=== PATIENT | female | born 1965 | race Two or more races ===

== ENCOUNTER 2018-08-13 23:13 | Emergency (ER) | payer OTHER ==
[~2018-08-13] VITALS: Ht 162.6 cm; Wt 72.6 kg
[~2018-08-13 23:13] MED LIST: ENALAPRIL MALE2.5 MG PO; GLIMEPIRIDE4 MG PO; PROTONIX20 MG; SINGULAIR10 MG PO; ZESTRIL5 MG
== END 2018-08-14 03:52 | disposition left against medical advice (07) ==
LOC: ER 23:13
DX: J06.9 Acute upper respiratory infection, unspecified (principal); E11.65 Type 2 diabetes mellitus with hyperglycemia; R10.12 Left upper quadrant pain

== ENCOUNTER 2023-05-12 17:50 | Emergency (ER) | payer OTHER ==
[~2023-05-12] VITALS: Ht 160 cm; Wt 78.0 kg
[2023-05-12] MEDS ORDERED: METFORMIN HCL500 M4 PO (17:59)
[2023-05-12] MEDS ORDERED: ZESTRIL2.5 MG (18:00)
[2023-05-12] MEDS ORDERED: hydrOXYzine PAMOATE 50 MG CAPSULE PO STA (19:51)
== END 2023-05-12 21:26 | disposition left against medical advice (07) ==
LOC: ER 17:51
DX: F41.8 Other specified anxiety disorders (principal)

== ENCOUNTER 2024-06-28 05:46 | Emergency (ER) | payer OTHER ==
[~2024-06-28] VITALS: Ht 160 cm; Wt 86.2 kg
[~2024-06-28 05:46] MED LIST changes: +METFORMIN HCL500 M4 PO; +ZESTRIL2.5 MG
[2024-06-28] MEDS ORDERED: KETOROLAC TROMETHAMINE 30 MG VIAL IV STA (07:29)
[2024-06-28] MEDS ORDERED: 0.9 % SODIUM CHLORIDE 1,000 ML IV ONE (07:30)
[2024-06-28] MEDS ORDERED: KETOROLAC TROMETHAMINE 30 MG VIAL ONE (07:31)
[2024-06-28 07:59] LABS: HEMATOCRIT 42.8 % (36.0-45.00); HEMOGLOBIN 14.2 g/dL (12.0-15.00); MEAN CELL VOLUME 78.2 fL (80.00-100.00); MEAN CORPUSCULAR HGB CONC 33.3 g/dl (32.0-36.0); RED BLOOD COUNT 5.47 M/uL (4.00-6.00); RED CELL DISTRIBUTION WIDTH 16.4 % (11.5-14.5)
[2024-06-28 08:01] LABS: PLATELET COUNT 129 K/uL (150-450)
[2024-06-28 08:27] LABS: ALBUMIN 3.4 gm/dL (3.4-5.0); BILIRUBIN TOTAL 0.52 mg/dL (0.3-1.2); CALCIUM 8.9 mg/dL (8.5-10.1); CREATININE SERUM 0.72 mg/dL (0.55-1.02); GFR 82.91; GLOBULINA 4.9 G/DL (2.4-3.5); POTASSIUM 3.85 mEq/L (3.5-5.1); TOTAL PROTEIN 8.3 gm/dL (6.4-8.2)
[2024-06-28 08:33] LABS: ABG PH 7.452 (7.35-7.45); ABG pCO2 34.5 mmHg (35-45); BASE EXCESS 0.2 mmol/l; BICARBONATE 23.6 mmol/l (23-25); Tco2 24.6 mmol/l
[2024-06-28] MEDS ORDERED: NORFLEX100MG PO (09:26)
[2024-06-28 11:32] LABS: allen test SATISFACTORY; mode ROOM AIR; o2 21 %; puncture site RADIAL RIGHT
== END 2024-06-28 09:35 | disposition home or self-care (01) ==
LOC: ER 05:47
PROVIDERS: General Practice
DX: R06.02 Shortness of breath (principal); R53.81 Other malaise; R53.1 Weakness; F41.9 Anxiety disorder, unspecified; E11.9 Type 2 diabetes mellitus without complications; Z79.84 Long term (current) use of oral hypoglycemic drugs; I10 Essential (primary) hypertension